=== PATIENT | female | born 1975 | race Caucasian/White ===

== ENCOUNTER 2017-10-09 17:05 | Emergency (ER) | payer SELFPAY ==
[~2017-10-09] VITALS: Ht 175.3 cm; Wt 59.0 kg
[2017-10-09] MEDS ORDERED: Tetracaine 0.5% Opth 4ml Soln LEFT EYE ONE (17:30)
[2017-10-09] MEDS ORDERED: Fluorescein Strips LEFT EYE ONE (17:30)
--- NOTE | 2017-10-09 17:44 | Emergency Room Report ---
History of Present Illness General Chief Complaint: Eye Problems Source: Patient Present Illness HPI 41-year-old female presents to the emergency department complaining of 10 out of 10 in severity pain, increased lacrimation, photophobia and erythema to the right thigh with similar symptoms but to a lesser degree in the left eye as well. Patient reports acute onset after waking up from anesthesia after her breast augmentation surgery today. Patient denies contact lens use she reports that she does have false eyelashes on. She denies discharge from the eyes. She is not sure when her last tetanus vaccination was. Denies headache, nausea or vomiting. Denies: Loss of vision, Floaters, or Flashing lights. Allergies: Coded Allergies: SULFA (SULFONAMIDE ANTIBIOTICS) (Unverified Allergy, Unknown, 10/09/17) Uncoded Allergies: SULFA (Allergy, Unknown, 10/09/17) Patient History Past Medical History: see triage record Past Surgical History: none Pertinent Family History: none Last Menstrual Period: 14 days ago Now: No Reviewed Nursing Documentation: PMH: Agreed; PSxH: Agreed Nursing Documentation-PMH Past Medical History: No History, Except For Review of Systems All Other Systems: negative except mentioned in HPI Physical Exam Vital Signs Date Time Temp Pulse Resp B/P (MAP) Pulse Ox O2 Delivery O2 Flow Rate FiO2 10/09/17 17:15 97.7 71 16 144/92 98 Room Air 97.7 Sp02 EP Interpretation: reviewed, normal General Appearance: alert, GCS 15, non-toxic, moderate distress Head: normocephalic, atraumatic Eyes: bilateral eye normal inspection, bilateral eye PERRL, bilateral eye EOMI , bilateral eye photophobia, bilateral eye other - Increase fluorescein uptake in multiple superficial linear patterns in the bilateral eyes centrally, most on the right eye, only one on the left, there is no Negative Wendi sign. No evidence of FB's. ENT: hearing grossly normal, normal voice, nasal congestion - clear rhinorrhea Respiratory: speaking full sentences Cardiovascular #1: regular rate, rhythm Musculoskeletal: back normal, gait/station normal, normal range of motion, non- tender Neurologic: alert, oriented x3, responsive, motor strength/tone normal, sensory intact, normal gait, speech normal, grossly normal Psychiatric: judgement/insight normal Skin: normal color, no rash, warm/dry, well hydrated Medical Decision Making PA Attestation Dr. Palencia is my supervising Physician whom patient management has been discussed with. Diagnostic Impression: Primary Impression: Bilateral corneal abrasions Qualified Codes: S05.01XA - Injury of conjunctiva and corneal abrasion without foreign body, right eye, initial encounter; S05.02XA - Injury of conjunctiva and corneal abrasion without foreign body, left eye, initial encounter ER Course 41-year-old female presents to the emergency department complaining of 10 out of 10 in severity pain, increased lacrimation, scratching sensation, photophobia and erythema to the right thigh with similar symptoms but to a lesser degree in the left eye as well. Patient reports acute onset after waking up from anesthesia after her breast augmentation surgery today. Patient denies contact lens use she reports that she does have false eyelashes on. She denies discharge from the eyes. She is not sure when her last tetanus vaccination was. Denies headache, nausea or vomiting. Denies: Loss of vision, Floaters, or Flashing lights. - Pt [reports/denies] Contact lens use. Ddx considered but are not limited to: corneal abrasion, acute glaucoma, globe rupture, FB, Corneal Ulcer, conjunctivitis. Iridis Vital signs: are WNL, pt. is afebrile H&PE are most consistent with: corneal abrasion ORDERS: -Tetracaine and Fluorescein Stain of the bilateral eyes: -Increase fluorescein uptake in multiple superficial linear patterns in the bilateral eyes centrally, most on the right eye, only one on the left, there is no Negative Wendi sign. Pt. had positive relief of pain with tetracaine drops. there was negative evidence of Fb, deep ulcer, or rupture. ED INTERVENTIONS: -Tdap administered. Discussed with this patient the importance of follow-up with ophthalmology. Patient reports she has an appointment made for tomorrow morning. DISCHARGE: At this time pt. is stable for d/c to home. Will provide printed patient care instructions, and any necessary prescriptions. Care plan and follow up instructions have been discussed with the patient prior to discharge. . Last Vital Signs Date Time Temp Pulse Resp B/P (MAP) Pulse Ox O2 Delivery O2 Flow Rate FiO2 10/09/17 17:15 97.7 71 16 144/92 98 Room Air 97.7 Disposition: HOME, SELF-CARE Condition: Stable Scripts Acetaminophen* (TYLENOL EXTRA STRENGTH*) 500 Mg Tablet 500 MG ORAL Q6H, #20 TAB 0 Refills Prov: Estela Mora 10/09/17 Ciprofloxacin (Ciprofloxacin HCl) 2.5 Ml Drops 2 DROP BOTH EYES Q4H for 5 Days, #2 ML Prov: Estela Mora 10/09/17 Patient Instructions: Corneal Abrasion, [id number] Additional Instructions: Take medications as directed. Follow up with a Peer Specialist in 3 days, even if your symptoms have resolved. --Please review list of primary care clinics, if you do not already have a primary care provider Return sooner to ED if new symptoms occur, or current symptoms become worse. - Please note that this Emergency Department Report was dictated using [id number] director technology software, occasionally this can lead to erroneous entry secondary to interpretation by the dictation equipment. Estela Mora Oct 09, 2017 17:44
[2017-10-09] MEDS ORDERED: TYLENOL EXTRA500 MG ORAL (17:46)
[2017-10-09] MEDS ORDERED: CILOXAN 0.3% O1 DROP BOTH EYES (17:46)
[2017-10-09] MEDS ORDERED: Tetanus/Diptheria/Pertussis Vaccine 0.5ml Syr IM ONE (18:00)
[2017-10-09 18:07] VITALS: BP 133/78
--- NOTE | 2017-10-11 15:18 | General Progress Note ---
Assessment/Plan Assessment/Plan Tetracaine drops given and patient had pain relief Subjective Date patient seen: Oct 10, 2017 ROS Limited/Unobtainable: Yes HEENT: Reports: no symptoms, blurred vision, tearing, double vision, ear pain, ear discharge, nose pain, nose congestion, throat pain, throat swelling, mouth pain, mouth swelling, other Allergies: Coded Allergies: SULFA (SULFONAMIDE ANTIBIOTICS) (Unverified Allergy, Unknown, 10/09/17) Uncoded Allergies: SULFA (Allergy, Unknown, 10/09/17) All Systems: reviewed and negative except above Subjective Pt s/p breast implant removal and replacement with bilateral eye pain. I observed a mild corneal abrasion on the right to naked eye and she began to feel pain in both eyes Objective Height (Feet): 5 Height (Inches): 9.00 Weight (Pounds): 130 SAMEER GUERRERO M.D. Oct 11, 2017 15:18
== END 2017-10-09 18:12 | disposition home or self-care (01) ==
LOC: EMR 17:44
DX: S05.02XA Injury of conjunctiva and corneal abrasion without foreign body, left eye, initial encounter (principal); S05.01XA Injury of conjunctiva and corneal abrasion without foreign body, right eye, initial encounter; X58.XXXA Exposure to other specified factors, initial encounter; Y93.9 Activity, unspecified; Y92.89 Other specified places as the place of occurrence of the external cause; Z88.2 Allergy status to sulfonamides; Z23 Encounter for immunization
CPT/HCPCS: 90471; 90715; 99283